=== PATIENT | female | born 1930 | race Caucasian/White ===

== ENCOUNTER 2020-05-13 10:09 | Inpatient (IN) | payer MEDICARE ==
[2020-05-13 11:07] LABS: #Eosinphils 0.1 thou/uL (0.0-0.7); #Lymphocytes 0.8 thou/uL (1.20-3.40); #Monocytes 0.7 thou/uL (0.11-0.59); %Eosinophils 0.9 % (0.0-10.0); %Lymphocytes 10.3 % (21.0-51.0); %Monocytes 9.2 % (0.0-10.0); %Neutrophils 79.6 % (42.0-75.0); Hemoglobin 12.1 g/dL (12.0-16.0); Mean Corpuscular HGB CONC 33.5 g/dL (32.0-36.0); Mean Corpuscular Hemoglobin 31.6 pg (27.0-31.0); Mean Corpuscular Volume 94.1 fL (78.0-98.0); Mean Platelet Volume 7.6 fL (7.4-10.4); Platelet Count 206 thou/uL (130-400); RBC Distribution Width 11.8 % (11.5-14.5); Red Blood Cell (RBC) Count 3.82 mill/uL (4.20-5.40); White Blood Cell (WBC) Count 7.6 thou/uL (4.8-10.8)
[2020-05-13 11:13] LABS: PTT 28.6 sec (22.9-36.1)
[2020-05-13 11:13] LABS: Bacteria/HPF None Seen HPF (None Seen); Bilirubin Negative (Negative); Blood, Urine Negative (Negative); Clarity Clear (Clear); Glucose, Urine (Dipstick) Normal (Negative); Ketone, Urine Negative (Negative); Leukocyte Negative Leu/uL (Negative); Nitrite Negative (Negative); Protein, Urine (Dipstick) 30 mg/dL (Neg-Trace); RBC/HPF 0-3 HPF (0-3); Specific Gravity, Urine 1.023 (1.002-1.036); Squamous Epithelial 0-3 HPF (0-3); WBC/HPF 0-3 HPF (0-3)
[2020-05-13 11:14] LABS: Prothrombin Time 13.3 sec (12.0-14.7)
[2020-05-13 11:26] LABS: ALT (SGPT) 9 U/L (8-55); AST (SGOT) 13 U/L (5-34); Albumin 3.8 g/dL (3.4-4.8); Alkaline Phosphatase 74 U/L (40-110); Anion Gap 15 mmol/L (10-20); BUN (Urea Nitrogen) 14 mg/dL (9.8-20.1); Bilirubin, Total 0.6 mg/dL (0.2-1.2); Calc. Creatinine Clearance 0 mL/min (70-130); Calcium 9.1 mg/dL (7.8-10.44); Carbon Dioxide 23 mmol/L (23-31); Chloride 103 mmol/L (98-107); Globulin 3.4 g/dL (2.4-3.5); Glucose 113 mg/dL (83-110); Potassium 3.9 mmol/L (3.5-5.1); Protein, Total 7.2 g/dL (5.8-8.1); Sodium 137 mmol/L (136-145)
[2020-05-13] MEDS ORDERED: Cefepime 2 GM VIAL ONE (11:50)
[2020-05-13] MEDS ORDERED: Vancomycin 1 GM/200 ML BAG ONE (12:30)
[2020-05-13] MEDS ORDERED: Acetaminophen 650 MG Suppository PR PRN (13:34)
[2020-05-13] MEDS ORDERED: Clindamycin/D5W 900 mg/50 ml Premix Bag ONE (13:49)
[2020-05-13] MEDS ORDERED: Pharmacy to Dose : VANC/ABX'S IVPB PRN (13:50)
[2020-05-13 14:01] LABS: SARS-CoV-2 NAA Rapid Test Not Detected (NotDetected)
[2020-05-13 17:31] VITALS: BMI 21.7
[2020-05-13] MEDS ORDERED: Fentanyl 100 MCG/2 ML VIAL ONE (17:34)
[2020-05-13] MEDS ORDERED: Bupivacaine PF 0.5% 30 ML VIAL ONE (17:43)
[2020-05-13] MEDS ORDERED: Thrombin 5000 UNITS/5 ML VIAL ONE (17:44)
[2020-05-13] MEDS ORDERED: Sodium Chloride 0.9% 10 ML ONE ×2 (17:44→18:54)
[2020-05-13] MEDS ORDERED: Ondansetron PF 4 MG/2 ML Vial ONE (18:09)
[2020-05-13] MEDS ORDERED: PROPOFOL 200 MG/20 ML VIAL ONE (18:09)
[2020-05-13] MEDS ORDERED: ePHEDrine 50 MG/ML VIAL ONE (18:09)
[2020-05-13] MEDS ORDERED: Dexamethasone 20 MG/5 ML VIAL ONE (18:09)
[2020-05-13] MEDS ORDERED: Lidocaine 1% PF 5 ML VIAL ONE (18:09)
[2020-05-13] MEDS: metroNIDAZOLE 500 MG in Premix Bag 1 BAG IVPB SCH (21:08)
[2020-05-13] MEDS ORDERED: HYDROcodone/Acetaminophen 7.5/325 mg Tablet PO PRN (21:52)
[2020-05-13] MEDS: Cefepime 2 GM in Sodium Chloride 0.9% 100 ML IVPB SCH (23:28)
[2020-05-14] MEDS: Vancomycin 1 GM in Premix Bag 1 BAG IVPB SCH ×2 (00:14→14:16)
[2020-05-14] MEDS: metroNIDAZOLE 500 MG in Premix Bag 1 BAG IVPB SCH ×4 (03:13→20:15)
[2020-05-14] MEDS: Morphine 2 MG/ML VIAL SLOW IVP PRN ×4 (04:11→21:18)
[2020-05-14 05:06] LABS: #Lymphocytes 0.3 thou/uL (1.20-3.40); #Monocytes 0.2 thou/uL (0.11-0.59); #Neutrophils 4.6 thou/uL (1.40-6.50); %Eosinophils 0.1 % (0.0-10.0); %Lymphocytes 6.3 % (21.0-51.0); %Monocytes 3.6 % (0.0-10.0); Hemoglobin 10.8 g/dL (12.0-16.0); Mean Corpuscular HGB CONC 34.1 g/dL (32.0-36.0); Mean Corpuscular Hemoglobin 32.5 pg (27.0-31.0); Mean Corpuscular Volume 95.5 fL (78.0-98.0); Mean Platelet Volume 7.6 fL (7.4-10.4); Platelet Count 180 thou/uL (130-400); RBC Distribution Width 11.6 % (11.5-14.5); Red Blood Cell (RBC) Count 3.31 mill/uL (4.20-5.40); White Blood Cell (WBC) Count 5.1 thou/uL (4.8-10.8)
[2020-05-14 05:28] LABS: Anion Gap 14 mmol/L (10-20); BUN (Urea Nitrogen) 14 mg/dL (9.8-20.1); Calc. Creatinine Clearance 58 mL/min (70-130); Calcium 8.5 mg/dL (7.8-10.44); Carbon Dioxide 19 mmol/L (23-31); Chloride 107 mmol/L (98-107); Glucose 139 mg/dL (83-110); Sodium 136 mmol/L (136-145)
[2020-05-14] MEDS ORDERED: FLU VACC QS2020-21(65YR UP)/PF 240 MCG/0.7 ML SYRINGE IM ONE (09:00)
[2020-05-14] MEDS: Hydrochlorothiazide 25 MG TAB PO SCH ×2 (09:45→09:49)
[2020-05-14] MEDS: Cefepime 2 GM in Sodium Chloride 0.9% 100 ML IVPB SCH ×2 (12:13→23:09)
[2020-05-14] MEDS: Atorvastatin Calcium 10 MG TAB PO SCH (20:16)
[2020-05-14] MEDS ORDERED: Sterile Water 10 ML VIAL FS PRN (21:00)
[2020-05-14] MEDS ORDERED: OLANZapine 10 MG VIAL IM SCH (21:00)
[2020-05-15 00:25] LABS: Vancomycin, Trough 17.7 ug/mL
[2020-05-15] MEDS: Vancomycin 1 GM in Premix Bag 1 BAG IVPB SCH ×2 (01:16→13:35)
[2020-05-15] MEDS: Morphine 2 MG/ML VIAL SLOW IVP PRN ×3 (01:20→20:59)
[2020-05-15] MEDS: metroNIDAZOLE 500 MG in Premix Bag 1 BAG IVPB SCH ×4 (02:28→20:59)
[2020-05-15 06:30] LABS: #Eosinphils 0.1 thou/uL (0.0-0.7); #Lymphocytes 0.9 thou/uL (1.20-3.40); #Monocytes 0.6 thou/uL (0.11-0.59); %Basophils 0.2 % (0.0-1.0); %Eosinophils 0.8 % (0.0-10.0); %Lymphocytes 11.3 % (21.0-51.0); %Neutrophils 79.6 % (42.0-75.0); Hemoglobin 11.7 g/dL (12.0-16.0); Mean Corpuscular HGB CONC 35.1 g/dL (32.0-36.0); Mean Corpuscular Hemoglobin 33.5 pg (27.0-31.0); Mean Corpuscular Volume 95.3 fL (78.0-98.0); Mean Platelet Volume 7.6 fL (7.4-10.4); Platelet Count 184 thou/uL (130-400); RBC Distribution Width 11.8 % (11.5-14.5); White Blood Cell (WBC) Count 7.5 thou/uL (4.8-10.8)
[2020-05-15 06:47] LABS: Anion Gap 14 mmol/L (10-20); BUN (Urea Nitrogen) 13 mg/dL (9.8-20.1); Calc. Creatinine Clearance 58 mL/min (70-130); Calcium 8.7 mg/dL (7.8-10.44); Carbon Dioxide 20 mmol/L (23-31); Chloride 105 mmol/L (98-107); Glucose 98 mg/dL (83-110); Potassium 3.6 mmol/L (3.5-5.1); Sodium 135 mmol/L (136-145)
[2020-05-15] MEDS: Hydrochlorothiazide 25 MG TAB PO SCH (09:02)
[2020-05-15] MEDS: Cefepime 2 GM in Sodium Chloride 0.9% 100 ML IVPB SCH (12:22)
[2020-05-15] MEDS: Atorvastatin Calcium 10 MG TAB PO SCH (21:01)
[2020-05-16] MEDS: Morphine 2 MG/ML VIAL SLOW IVP PRN ×3 (02:20→16:50)
[2020-05-16] MEDS: metroNIDAZOLE 500 MG in Premix Bag 1 BAG IVPB SCH ×4 (02:20→23:14)
[2020-05-16 06:04] LABS: #Eosinphils 0.1 thou/uL (0.0-0.7); #Lymphocytes 0.7 thou/uL (1.20-3.40); #Monocytes 0.5 thou/uL (0.11-0.59); #Neutrophils 5.1 thou/uL (1.40-6.50); %Eosinophils 1.6 % (0.0-10.0); %Lymphocytes 10.5 % (21.0-51.0); %Monocytes 7.6 % (0.0-10.0); %Neutrophils 80.3 % (42.0-75.0); Mean Corpuscular HGB CONC 33.3 g/dL (32.0-36.0); Mean Corpuscular Hemoglobin 31.5 pg (27.0-31.0); Mean Corpuscular Volume 94.6 fL (78.0-98.0); Mean Platelet Volume 7.5 fL (7.4-10.4); Platelet Count 201 thou/uL (130-400); RBC Distribution Width 11.7 % (11.5-14.5); Red Blood Cell (RBC) Count 3.81 mill/uL (4.20-5.40); White Blood Cell (WBC) Count 6.4 thou/uL (4.8-10.8)
[2020-05-16 06:25] LABS: Anion Gap 13 mmol/L (10-20); BUN (Urea Nitrogen) 11 mg/dL (9.8-20.1); Calc. Creatinine Clearance 60 mL/min (70-130); Calcium 8.6 mg/dL (7.8-10.44); Carbon Dioxide 23 mmol/L (23-31); Chloride 103 mmol/L (98-107); Glucose 117 mg/dL (83-110); Potassium 3.3 mmol/L (3.5-5.1); Sodium 136 mmol/L (136-145)
[2020-05-16] MEDS: Hydrochlorothiazide 25 MG TAB PO SCH (10:15)
[2020-05-16] MEDS: Cefepime 2 GM in Sodium Chloride 0.9% 100 ML IVPB SCH ×3 (13:10→23:52)
[2020-05-16] MEDS ORDERED: Sodium Chloride 0.9% 10 ML ONE (13:50)
[2020-05-16] MEDS ORDERED: Bupivacaine PF 0.5% 30 ML VIAL ONE ×2 (13:50→13:52)
[2020-05-16] MEDS ORDERED: Bacitracin Zinc Ointment 30 gm TUBE ONE (13:50)
[2020-05-16] MEDS ORDERED: Fentanyl 100 MCG/2 ML VIAL ONE (14:10)
[2020-05-16] MEDS ORDERED: PROPOFOL 200 MG/20 ML VIAL ONE (14:17)
[2020-05-16] MEDS ORDERED: PHENYLEPHRINE-NS 100 MCG/ML 10 ML SYRINGE ONE (14:17)
[2020-05-16] MEDS ORDERED: Lidocaine 1% PF 5 ML VIAL ONE (14:17)
[2020-05-16] MEDS ORDERED: Dexamethasone 20 MG/5 ML VIAL ONE (14:17)
[2020-05-16] MEDS ORDERED: Ondansetron PF 4 MG/2 ML Vial ONE (14:17)
[2020-05-16 16:15] LABS: Fungus Stain Final report (.)
[2020-05-16 16:15] LABS: Fungus Stain Final report (.)
[2020-05-16 16:15] LABS: Fungus Stain Final report (.)
[2020-05-16] MEDS ORDERED: Vancomycin HCl 750 MG in Sodium Chloride 0.9% 250 ML 250 ML IVPB SCH (21:00)
[2020-05-16] MEDS ORDERED: Lorazepam 2 MG/ML VIAL SLOW IVP SCH (22:00)
[2020-05-16] MEDS: Atorvastatin Calcium 10 MG TAB PO SCH (22:03)
[2020-05-17] MEDS: Vancomycin HCl 750 MG in Sodium Chloride 0.9% 250 ML 250 ML IVPB SCH ×2 (01:42→13:11)
[2020-05-17] MEDS: Morphine 2 MG/ML VIAL SLOW IVP PRN ×2 (02:24→08:36)
[2020-05-17] MEDS: metroNIDAZOLE 500 MG in Premix Bag 1 BAG IVPB SCH ×2 (02:58→08:37)
[2020-05-17 04:39] LABS: Anion Gap 14 mmol/L (10-20); BUN (Urea Nitrogen) 13 mg/dL (9.8-20.1); Calc. Creatinine Clearance 61 mL/min (70-130); Calcium 8.3 mg/dL (7.8-10.44); Carbon Dioxide 22 mmol/L (23-31); Chloride 107 mmol/L (98-107); Glucose 110 mg/dL (83-110); Potassium 3.5 mmol/L (3.5-5.1); Sodium 139 mmol/L (136-145)
[2020-05-17 06:19] LABS: #Eosinphils 0.1 thou/uL (0.0-0.7); #Lymphocytes 0.7 thou/uL (1.20-3.40); #Monocytes 0.5 thou/uL (0.11-0.59); #Neutrophils 5.5 thou/uL (1.40-6.50); %Basophils 0.1 % (0.0-1.0); %Lymphocytes 10.7 % (21.0-51.0); %Monocytes 7.8 % (0.0-10.0); %Neutrophils 80.4 % (42.0-75.0); Mean Corpuscular HGB CONC 32.2 g/dL (32.0-36.0); Mean Corpuscular Hemoglobin 30.2 pg (27.0-31.0); Mean Corpuscular Volume 93.7 fL (78.0-98.0); Mean Platelet Volume 7.5 fL (7.4-10.4); Platelet Count 213 thou/uL (130-400); RBC Distribution Width 11.4 % (11.5-14.5); Red Blood Cell (RBC) Count 3.64 mill/uL (4.20-5.40); White Blood Cell (WBC) Count 6.9 thou/uL (4.8-10.8)
[2020-05-17] MEDS: Hydrochlorothiazide 25 MG TAB PO SCH (11:21)
[2020-05-17] MEDS: Cefepime 2 GM in Sodium Chloride 0.9% 100 ML IVPB SCH (11:29)
[2020-05-17] MEDS: metroNIDAZOLE 500 MG TAB PO SCH ×2 (17:42→20:39)
[2020-05-17] MEDS: HYDROcodone/Acetaminophen 7.5/325 mg Tablet PO PRN ×2 (17:45→22:58)
[2020-05-17] MEDS: risperiDONE 1 MG TAB PO SCH (20:39)
[2020-05-17] MEDS: Ciprofloxacin 500 MG TAB PO SCH (20:39)
[2020-05-17] MEDS: Atorvastatin Calcium 10 MG TAB PO SCH (20:40)
[2020-05-17] MEDS: Acetaminophen 325 MG TAB PO PRN (20:41)
[2020-05-18] MEDS: Ciprofloxacin 500 MG TAB PO SCH ×2 (05:38→20:56)
[2020-05-18] MEDS: Hydrochlorothiazide 25 MG TAB PO SCH (09:53)
[2020-05-18] MEDS: metroNIDAZOLE 500 MG TAB PO SCH (09:53)
[2020-05-18] MEDS ORDERED: Bisacodyl 10 MG SUPP PR PRN (13:44)
[2020-05-18] MEDS: Atorvastatin Calcium 10 MG TAB PO SCH (20:56)
[2020-05-18] MEDS: HYDROcodone/Acetaminophen 7.5/325 mg Tablet PO PRN (20:56)
[2020-05-18] MEDS: Amoxicillin/Potassium Clav 875 MG TAB PO SCH (20:56)
[2020-05-18] MEDS: risperiDONE 1 MG TAB PO SCH (20:56)
[2020-05-19] MEDS: Ciprofloxacin 500 MG TAB PO SCH ×2 (06:17→20:10)
[2020-05-19] MEDS: Amoxicillin/Potassium Clav 875 MG TAB PO SCH ×2 (10:39→20:10)
[2020-05-19] MEDS: Hydrochlorothiazide 25 MG TAB PO SCH (10:39)
[2020-05-19] MEDS: risperiDONE 1 MG TAB PO SCH (20:10)
[2020-05-19] MEDS: Atorvastatin Calcium 10 MG TAB PO SCH (20:10)
[2020-05-20] MEDS: Ciprofloxacin 500 MG TAB PO SCH ×2 (06:00→22:38)
[2020-05-20] MEDS: Hydrochlorothiazide 25 MG TAB PO SCH (11:07)
[2020-05-20] MEDS: Amoxicillin/Potassium Clav 875 MG TAB PO SCH ×2 (11:07→22:25)
[2020-05-20 14:48] LABS: Anion Gap 13 mmol/L (10-20); BUN (Urea Nitrogen) 19 mg/dL (9.8-20.1); Calc. Creatinine Clearance 62 mL/min (70-130); Calcium 8.7 mg/dL (7.8-10.44); Carbon Dioxide 25 mmol/L (23-31); Chloride 104 mmol/L (98-107); Glucose 128 mg/dL (83-110); Sodium 139 mmol/L (136-145)
[2020-05-20] MEDS: Acetaminophen 325 MG TAB PO PRN (19:25)
[2020-05-20 20:26] LABS: #Lymphocytes 0.4 thou/uL (1.20-3.40); #Neutrophils 12.1 thou/uL (1.40-6.50); %Eosinophils 0.2 % (0.0-10.0); %Monocytes 7.2 % (0.0-10.0); %Neutrophils 89.6 % (42.0-75.0); Hemoglobin 12.7 g/dL (12.0-16.0); Mean Corpuscular HGB CONC 33.7 g/dL (32.0-36.0); Mean Corpuscular Hemoglobin 31.4 pg (27.0-31.0); Mean Corpuscular Volume 93.2 fL (78.0-98.0); Mean Platelet Volume 8.4 fL (7.4-10.4); Platelet Count 149 thou/uL (130-400); RBC Distribution Width 11.9 % (11.5-14.5); Red Blood Cell (RBC) Count 4.03 mill/uL (4.20-5.40); White Blood Cell (WBC) Count 13.6 thou/uL (4.8-10.8)
[2020-05-20 20:41] LABS: Lactic Acid 2.7 mmol/L (0.5-2.2)
[2020-05-20 20:46] LABS: Anion Gap 18 mmol/L (10-20); BUN (Urea Nitrogen) 19 mg/dL (9.8-20.1); Calc. Creatinine Clearance 58 mL/min (70-130); Calcium 8.6 mg/dL (7.8-10.44); Carbon Dioxide 21 mmol/L (23-31); Chloride 101 mmol/L (98-107); Glucose 188 mg/dL (83-110); Magnesium 1.9 mg/dL (1.6-2.6); Sodium 137 mmol/L (136-145)
[2020-05-20 20:53] LABS: Potassium 2.9 mmol/L (3.5-5.1)
[2020-05-20] MEDS ORDERED: Magnesium Sulfate 2 GM in Sodium Chloride 0.9% 100 ML IVPB SCH (21:00)
[2020-05-20] MEDS ORDERED: Electrolyte Replacement Protocol 1 EACH FS SCH (21:00)
[2020-05-20 21:05] LABS: Actual Bicarbonate (HCO3a) 22.1 mEq/L (22-28); Base Excess (BEa) 0.7 mEq/L (-2.0 to +3.0); CO2 Tension 26.2 mmHg (35.0-45.0); Carboxyhemoglobin (COHb) 0.2 gm% (0.0-3.0); Hemoglobin (Hb) 11.5 g/dL (12.0-16.0); O2 Tension (PaO2), arterial 71.2 mmHg (> 60.0); Potassium - ABG Lab 2.68 mmol/L (3.70-5.30); pH, Arterial 7.54 (7.35-7.45)
[2020-05-20 21:09] LABS: Puncture Site RBA
[2020-05-20] MEDS ORDERED: Magnesium 2 GM/50 ML 2 GM in Premix Bag 1 BAG IVPB SCH (21:15)
[2020-05-20 21:31] LABS: Troponin I 0.081 ng/mL (< 0.028)
[2020-05-20] MEDS: Cefepime 2 GM in Sodium Chloride 0.9% 100 ML IVPB SCH (21:49)
[2020-05-20] MEDS: Potassium Chloride 20 MEQ in Premix Bag 1 BAG IVPB SCH ×2 (21:50→23:56)
[2020-05-20] MEDS: Sodium Chloride 0.9% 1,000 ML IV SCH (21:51)
[2020-05-20] MEDS: risperiDONE 1 MG TAB PO SCH (22:25)
[2020-05-20] MEDS: Atorvastatin Calcium 10 MG TAB PO SCH (22:25)
[2020-05-20] MEDS ORDERED: Vancomycin 1 GM in Premix Bag 1 BAG IVPB SCH (23:00)
[2020-05-20 23:57] LABS: Lactic Acid 1.8 mmol/L (0.5-2.2)
[2020-05-21] LABS: Anion Gap 13 mmol/L (10-20); BUN (Urea Nitrogen) 18 mg/dL (9.8-20.1); Calc. Creatinine Clearance 56 mL/min (70-130); Calcium 8.2 mg/dL (7.8-10.44); Carbon Dioxide 26 mmol/L (23-31); Chloride 100 mmol/L (98-107); Glucose 150 mg/dL (83-110); Potassium 3.2 mmol/L (3.5-5.1); Sodium 136 mmol/L (136-145)
[2020-05-21 02:41] LABS: Bilirubin Negative (Negative); Blood, Urine Trace (Negative); Clarity Clear (Clear); Glucose, Urine (Dipstick) Normal (Negative); Ketone, Urine Negative (Negative); Leukocyte 25 Leu/uL (Negative); Nitrite Negative (Negative); Protein, Urine (Dipstick) 30 mg/dL (Neg-Trace); Specific Gravity, Urine 1.027 (1.002-1.036); Squamous Epithelial 0-3 HPF (0-3); Urobilinogen Normal mg/dL (Less than 2)
[2020-05-21 02:55] LABS: Bacteria/HPF None Seen HPF (None Seen)
[2020-05-21 02:56] LABS: Urine Culture Reflex Yes Yes
[2020-05-21] MEDS: Acetaminophen 325 MG TAB PO PRN (03:15)
[2020-05-21 03:43] LABS: Anion Gap 13 mmol/L (10-20); Carbon Dioxide 24 mmol/L (23-31); Chloride 101 mmol/L (98-107); Magnesium 2.3 mg/dL (1.6-2.6); Potassium 3.3 mmol/L (3.5-5.1); Sodium 135 mmol/L (136-145)
[2020-05-21] MEDS: Potassium Chloride 20 MEQ in Premix Bag 1 BAG IVPB SCH ×2 (06:34→08:18)
[2020-05-21] MEDS: Sodium Chloride 0.9% 1,000 ML IV SCH ×3 (06:37→20:30)
[2020-05-21] MEDS: Amoxicillin/Potassium Clav 875 MG TAB PO SCH (08:18)
[2020-05-21] MEDS: Hydrochlorothiazide 25 MG TAB PO SCH (08:18)
[2020-05-21] MEDS: Cefepime 2 GM in Sodium Chloride 0.9% 100 ML IVPB SCH ×2 (09:29→23:01)
[2020-05-21] MEDS: Vancomycin HCl 750 MG in Sodium Chloride 0.9% 250 ML 250 ML IVPB SCH ×2 (10:24→23:01)
[2020-05-21] MEDS: HYDROcodone/Acetaminophen 7.5/325 mg Tablet PO PRN (17:58)
[2020-05-21] MEDS: ALPRAZolam 0.25 MG TAB PO PRN (20:31)
[2020-05-21] MEDS: Atorvastatin Calcium 10 MG TAB PO SCH (20:33)
[2020-05-21] MEDS: risperiDONE 1 MG TAB PO SCH (20:42)
[2020-05-22] MEDS: Hydrochlorothiazide 25 MG TAB PO SCH (08:25)
[2020-05-22] MEDS: Cefepime 2 GM in Sodium Chloride 0.9% 100 ML IVPB SCH ×2 (10:17→21:25)
[2020-05-22 10:26] LABS: Vancomycin, Trough 8.4 ug/mL
[2020-05-22 10:34] LABS: ALT (SGPT) 11 U/L (8-55); AST (SGOT) 15 U/L (5-34); Albumin 2.9 g/dL (3.4-4.8); Alkaline Phosphatase 50 U/L (40-110); Anion Gap 12 mmol/L (10-20); BUN (Urea Nitrogen) 8 mg/dL (9.8-20.1); Bilirubin, Total 0.4 mg/dL (0.2-1.2); Calc. Creatinine Clearance 72 mL/min (70-130); Calcium 7.8 mg/dL (7.8-10.44); Carbon Dioxide 21 mmol/L (23-31); Chloride 106 mmol/L (98-107); Globulin 2.8 g/dL (2.4-3.5); Glucose 124 mg/dL (83-110); Potassium 3.2 mmol/L (3.5-5.1); Protein, Total 5.7 g/dL (5.8-8.1); Sodium 136 mmol/L (136-145)
[2020-05-22] MEDS ORDERED: Potassium Chloride 20 MEQ TAB PO SCH (11:00)
[2020-05-22] MEDS: Vancomycin 1.5 GRAM/300 ML BAG 1.5 GM in Premix Bag 1 BAG IVPB SCH ×2 (11:38→22:10)
[2020-05-22 14:12] LABS: #Eosinphils 0.2 thou/uL (0.0-0.7); #Lymphocytes 0.5 thou/uL (1.20-3.40); #Monocytes 0.9 thou/uL (0.11-0.59); #Neutrophils 7.3 thou/uL (1.40-6.50); %Basophils 0.1 % (0.0-1.0); %Eosinophils 1.9 % (0.0-10.0); %Monocytes 10.3 % (0.0-10.0); %Neutrophils 81.7 % (42.0-75.0); Hemoglobin 11.8 g/dL (12.0-16.0); Mean Corpuscular HGB CONC 32.6 g/dL (32.0-36.0); Mean Corpuscular Hemoglobin 30.8 pg (27.0-31.0); Mean Corpuscular Volume 94.5 fL (78.0-98.0); Mean Platelet Volume 8.1 fL (7.4-10.4); Platelet Count 148 thou/uL (130-400); RBC Distribution Width 11.8 % (11.5-14.5); Red Blood Cell (RBC) Count 3.82 mill/uL (4.20-5.40); White Blood Cell (WBC) Count 8.9 thou/uL (4.8-10.8)
[2020-05-22] MEDS: Sodium Chloride 0.9% 1,000 ML IV SCH ×2 (17:22→20:27)
[2020-05-22] MEDS: Atorvastatin Calcium 10 MG TAB PO SCH (20:23)
[2020-05-22] MEDS: ALPRAZolam 0.25 MG TAB PO PRN (20:23)
[2020-05-22] MEDS: risperiDONE 1 MG TAB PO SCH (20:23)
[2020-05-23] MEDS: Cefepime 2 GM in Sodium Chloride 0.9% 100 ML IVPB SCH ×2 (09:44→22:39)
[2020-05-23] MEDS: Hydrochlorothiazide 25 MG TAB PO SCH (09:44)
[2020-05-23] MEDS: Vancomycin 1.5 GRAM/300 ML BAG 1.5 GM in Premix Bag 1 BAG IVPB SCH ×2 (10:24→23:14)
[2020-05-23] MEDS: risperiDONE 1 MG TAB PO SCH (20:49)
[2020-05-23] MEDS: Atorvastatin Calcium 10 MG TAB PO SCH (20:49)
[2020-05-24] MEDS: Cefepime 2 GM in Sodium Chloride 0.9% 100 ML IVPB SCH (09:48)
[2020-05-24] MEDS: Hydrochlorothiazide 25 MG TAB PO SCH (09:48)
[2020-05-24 10:56] LABS: Vancomycin, Trough 20.8 ug/mL
[2020-05-24] MEDS: Atorvastatin Calcium 10 MG TAB PO SCH (21:10)
[2020-05-24] MEDS: risperiDONE 1 MG TAB PO SCH (21:20)
[2020-05-24] MEDS: Amoxicillin/Potassium Clav 600 mg/5 ml Oral Suspension PO SCH (22:22)
[2020-05-24] MEDS: ALPRAZolam 0.25 MG TAB PO PRN (23:28)
[2020-05-25 08:11] VITALS: BP 131/88; TEMP 99.1
[2020-05-25] MEDS: Amoxicillin/Potassium Clav 600 mg/5 ml Oral Suspension PO SCH (09:53)
[2020-05-25] MEDS: Hydrochlorothiazide 25 MG TAB PO SCH (09:53)
[2020-06-11 09:16] LABS: Fungus Culture Final report (.)
[2020-06-12 07:15] LABS: Fungus Culture Final report (.); Fungus Culture Result 1 Candida albicans (.)
[2020-06-12 07:15] LABS: Fungus Culture Final report (.)
== END 2020-05-25 16:00 | disposition home health service (06) | DRG 256 ==
LOC: ERS 10:09 → ONC 12:40 → IMCU/EMU 05-20 21:20 → ONC 05-21 15:52
PROVIDERS: ADMIT Internal Medicine; ATTEND Internal Medicine
PROC: 0X6Q0Z1 Detachment at Right Middle Finger, High, Open Approach (ICD-10-PCS; principal; 2020-05-13)
PROC: 0PBT0ZZ Excision of Right Finger Phalanx, Open Approach (ICD-10-PCS; 2020-05-16)
DX: I96 Gangrene, not elsewhere classified (principal); F03.91 Unspecified dementia, unspecified severity, with behavioral disturbance; E44.0 Moderate protein-calorie malnutrition; I10 Essential (primary) hypertension; E78.5 Hyperlipidemia, unspecified; Z79.899 Other long term (current) drug therapy; I89.1 Lymphangitis; F41.9 Anxiety disorder, unspecified; Z79.82 Long term (current) use of aspirin; Z51.5 Encounter for palliative care; Z68.21 Body mass index [BMI] 21.0-21.9, adult; R62.7 Adult failure to thrive; I95.9 Hypotension, unspecified; R50.9 Fever, unspecified
CPT/HCPCS: 0240U; 36415; 36416; 36600; 51701; 70450; 71045; 80048; 80051; 80053; 80202; 81001; 81003; 81015; 82805; 83605; 83735; 84484; 85025; 85610; 85652; 85730; 86140; 87040; 87070; 87076; 87077; 87086; 87102; 87116; 87149; 87186; 87205; 87206; 93005; 93010; 96365; 96367; J0692; J1100; J2060; J2270; J2405; J2704; J3010; J3370; J3475; J3480; J3490; J7050; S0020

== ENCOUNTER 2020-05-25 21:37 | Inpatient (IN) | payer MEDICARE ==
[2020-05-25 22:50] LABS: #Lymphocytes 0.5 thou/uL (1.20-3.40); #Neutrophils 11.7 thou/uL (1.40-6.50); %Basophils 0.2 % (0.0-1.0); %Eosinophils 0.2 % (0.0-10.0); %Lymphocytes 3.9 % (21.0-51.0); %Monocytes 7.5 % (0.0-10.0); %Neutrophils 88.3 % (42.0-75.0); Hemoglobin 12.3 g/dL (12.0-16.0); Mean Corpuscular HGB CONC 33.4 g/dL (32.0-36.0); Mean Corpuscular Hemoglobin 30.8 pg (27.0-31.0); Mean Corpuscular Volume 92.3 fL (78.0-98.0); Mean Platelet Volume 7.7 fL (7.4-10.4); Platelet Count 224 thou/uL (130-400); RBC Distribution Width 11.9 % (11.5-14.5); Red Blood Cell (RBC) Count 3.98 mill/uL (4.20-5.40); White Blood Cell (WBC) Count 13.2 thou/uL (4.8-10.8)
[2020-05-25 23:09] LABS: ALT (SGPT) 23 U/L (8-55); AST (SGOT) 22 U/L (5-34); Albumin 3.7 g/dL (3.4-4.8); Alkaline Phosphatase 64 U/L (40-110); Anion Gap 16 mmol/L (10-20); BUN (Urea Nitrogen) 18 mg/dL (9.8-20.1); Bilirubin, Total 0.8 mg/dL (0.2-1.2); Calc. Creatinine Clearance 0 mL/min (70-130); Calcium 8.9 mg/dL (7.8-10.44); Carbon Dioxide 24 mmol/L (23-31); Chloride 101 mmol/L (98-107); Globulin 3.7 g/dL (2.4-3.5); Glucose 154 mg/dL (83-110); Potassium 3.1 mmol/L (3.5-5.1); Protein, Total 7.4 g/dL (5.8-8.1); Sodium 138 mmol/L (136-145)
[2020-05-25 23:56] LABS: Bacteria/HPF None Seen HPF (None Seen); Bilirubin Negative (Negative); Blood, Urine Negative (Negative); Clarity Turbid (Clear); Glucose, Urine (Dipstick) Normal (Negative); Ketone, Urine Trace mg/dL (Negative); Leukocyte Negative Leu/uL (Negative); Nitrite Negative (Negative); Protein, Urine (Dipstick) 50 mg/dL (Neg-Trace); RBC/HPF 0-3 HPF (0-3); Specific Gravity, Urine 1.025 (1.002-1.036); Urobilinogen Normal mg/dL (Less than 2); pH, Urine 5.5 (5.0-9.0)
[2020-05-26] MEDS: Vancomycin 1 GM in Premix Bag 1 BAG IVPB SCH (00:30)
[2020-05-26] MEDS ORDERED: Acetaminophen 650 MG Suppository ONE (01:31)
[2020-05-26] MEDS ORDERED: Cefepime 2 GM VIAL ONE (01:31)
[2020-05-26] MEDS ORDERED: Vancomycin 1 GM/200 ML BAG ONE (01:31)
[2020-05-26 02:35] LABS: Lactic Acid 0.9 mmol/L (0.5-2.2)
[2020-05-26 03:13] LABS: SARS-CoV-2 NAA Rapid Test Not Detected (NotDetected)
[2020-05-26] MEDS ORDERED: VANCOMYCIN 1.25 GM/250 ML BAG IVPB SCH (03:15)
[2020-05-26] MEDS ORDERED: Doxycycline 100 MG in Syringe 0 ML IVPB SCH (04:00)
[2020-05-26 04:23] VITALS: BMI 23.6
[2020-05-26] MEDS: Sodium Chloride 0.9% 1,000 ML IV SCH (04:29)
[2020-05-26] MEDS: Doxycycline 100 MG in Sodium Chloride 0.9% 100 ML IVPB SCH ×2 (04:49→16:03)
[2020-05-26 05:06] LABS: #Eosinphils 0.1 thou/uL (0.0-0.7); #Lymphocytes 0.7 thou/uL (1.20-3.40); #Monocytes 0.7 thou/uL (0.11-0.59); #Neutrophils 7.8 thou/uL (1.40-6.50); %Basophils 0.2 % (0.0-1.0); %Eosinophils 0.7 % (0.0-10.0); %Lymphocytes 7.1 % (21.0-51.0); %Monocytes 7.5 % (0.0-10.0); %Neutrophils 84.4 % (42.0-75.0); Mean Corpuscular Hemoglobin 31.4 pg (27.0-31.0); Mean Corpuscular Volume 92.5 fL (78.0-98.0); Mean Platelet Volume 7.9 fL (7.4-10.4); Platelet Count 161 thou/uL (130-400); RBC Distribution Width 11.8 % (11.5-14.5); Red Blood Cell (RBC) Count 3.18 mill/uL (4.20-5.40); White Blood Cell (WBC) Count 9.2 thou/uL (4.8-10.8)
[2020-05-26 05:26] LABS: Anion Gap 11 mmol/L (10-20); BUN (Urea Nitrogen) 15 mg/dL (9.8-20.1); Calc. Creatinine Clearance 66 mL/min (70-130); Calcium 7.6 mg/dL (7.8-10.44); Carbon Dioxide 20 mmol/L (23-31); Chloride 109 mmol/L (98-107); Glucose 137 mg/dL (83-110); Sodium 137 mmol/L (136-145)
[2020-05-26 05:33] LABS: Potassium 2.7 mmol/L (3.5-5.1)
[2020-05-26] MEDS ORDERED: Electrolyte Replacement Protocol 1 EACH FS PRN (06:04)
[2020-05-26] MEDS ORDERED: Potassium Bicarbonate/Cit Ac 20 MEQ TAB PO SCH ×2 (06:15→08:00)
[2020-05-26] MEDS ORDERED: FLU VACC QS2020-21(65YR UP)/PF 240 MCG/0.7 ML SYRINGE IM ONE (07:00)
[2020-05-26] MEDS ORDERED: Magnesium 2 GM/50 ML 2 GM in Premix Bag 1 BAG IVPB SCH (07:15)
[2020-05-26] MEDS: Enoxaparin Sodium 40 MG/0.4 ML SYRINGE SC SCH (09:32)
[2020-05-26] MEDS: Potassium Chloride 20 MEQ in Premix Bag 1 BAG IVPB SCH ×3 (11:35→22:30)
[2020-05-26] MEDS: Cefepime 2 GM in Sodium Chloride 0.9% 100 ML IVPB SCH (13:47)
[2020-05-26] MEDS: Acetaminophen 325 MG TAB PO PRN (17:00)
[2020-05-27] MEDS: Potassium Chloride 20 MEQ in Premix Bag 1 BAG IVPB SCH (00:30)
[2020-05-27] MEDS: Acetaminophen 325 MG TAB PO PRN ×2 (00:34→17:47)
[2020-05-27] MEDS: Cefepime 2 GM in Sodium Chloride 0.9% 100 ML IVPB SCH ×2 (03:03→14:24)
[2020-05-27] MEDS: Doxycycline 100 MG in Sodium Chloride 0.9% 100 ML IVPB SCH ×2 (04:43→16:36)
[2020-05-27 04:45] LABS: #Eosinphils 0.1 thou/uL (0.0-0.7); #Lymphocytes 0.4 thou/uL (1.20-3.40); #Monocytes 0.8 thou/uL (0.11-0.59); #Neutrophils 6.3 thou/uL (1.40-6.50); %Basophils 0.1 % (0.0-1.0); %Eosinophils 1.5 % (0.0-10.0); %Lymphocytes 5.8 % (21.0-51.0); %Monocytes 10.1 % (0.0-10.0); %Neutrophils 82.5 % (42.0-75.0); Hemoglobin 9.7 g/dL (12.0-16.0); Mean Corpuscular HGB CONC 33.1 g/dL (32.0-36.0); Mean Corpuscular Hemoglobin 30.8 pg (27.0-31.0); Mean Corpuscular Volume 93.2 fL (78.0-98.0); Mean Platelet Volume 7.8 fL (7.4-10.4); Platelet Count 156 thou/uL (130-400); RBC Distribution Width 11.8 % (11.5-14.5); Red Blood Cell (RBC) Count 3.16 mill/uL (4.20-5.40); White Blood Cell (WBC) Count 7.6 thou/uL (4.8-10.8)
[2020-05-27 05:11] LABS: Anion Gap 11 mmol/L (10-20); BUN (Urea Nitrogen) 16 mg/dL (9.8-20.1); Calc. Creatinine Clearance 67 mL/min (70-130); Calcium 7.8 mg/dL (7.8-10.44); Carbon Dioxide 20 mmol/L (23-31); Chloride 111 mmol/L (98-107); Glucose 110 mg/dL (83-110); Potassium 3.8 mmol/L (3.5-5.1); Sodium 138 mmol/L (136-145)
[2020-05-27] MEDS: Enoxaparin Sodium 40 MG/0.4 ML SYRINGE SC SCH (08:47)
[2020-05-27] MEDS: hydrALAZINE 20 MG/ML VIAL SLOW IVP PRN (08:47)
[2020-05-27] MEDS ORDERED: Potassium Chloride 20 MEQ TAB PO SCH (09:15)
[2020-05-27] MEDS: Hydrochlorothiazide 25 MG TAB PO SCH (09:51)
[2020-05-27] MEDS: Sodium Chloride 0.9% 1,000 ML IV SCH ×2 (11:11)
[2020-05-27] MEDS ORDERED: Simvastatin 20 MG TAB PO SCH (21:00)
[2020-05-27] MEDS: Vancomycin 1 GM in Premix Bag 1 BAG IVPB SCH (22:49)
[2020-05-27] MEDS: risperiDONE 1 MG TAB PO SCH (22:49)
[2020-05-27] MEDS: Atorvastatin Calcium 10 MG TAB PO SCH (22:49)
[2020-05-27 23:40] LABS: Vancomycin, Trough 6.1 ug/mL
[2020-05-28] MEDS: Cefepime 2 GM in Sodium Chloride 0.9% 100 ML IVPB SCH ×2 (01:57→13:11)
[2020-05-28] MEDS: Nystatin Powder 15 GM BOT TOP SCH ×5 (01:58→21:58)
[2020-05-28] MEDS: Doxycycline 100 MG in Sodium Chloride 0.9% 100 ML IVPB SCH ×2 (05:00→16:49)
[2020-05-28 05:18] LABS: Anion Gap 14 mmol/L (10-20); BUN (Urea Nitrogen) 15 mg/dL (9.8-20.1); Calc. Creatinine Clearance 71 mL/min (70-130); Calcium 7.8 mg/dL (7.8-10.44); Carbon Dioxide 19 mmol/L (23-31); Chloride 113 mmol/L (98-107); Glucose 117 mg/dL (83-110); Potassium 3.4 mmol/L (3.5-5.1); Sodium 143 mmol/L (136-145)
[2020-05-28] MEDS ORDERED: Potassium Chloride 20 MEQ TAB PO SCH ×2 (05:45→10:30)
[2020-05-28 06:18] LABS: #Eosinphils 0.3 thou/uL (0.0-0.7); #Lymphocytes 0.5 thou/uL (1.20-3.40); #Monocytes 0.6 thou/uL (0.11-0.59); #Neutrophils 5.4 thou/uL (1.40-6.50); %Basophils 0.3 % (0.0-1.0); %Lymphocytes 7.8 % (21.0-51.0); %Monocytes 8.8 % (0.0-10.0); %Neutrophils 79.2 % (42.0-75.0); Mean Corpuscular HGB CONC 33.1 g/dL (32.0-36.0); Mean Corpuscular Hemoglobin 30.8 pg (27.0-31.0); Mean Corpuscular Volume 93.1 fL (78.0-98.0); Mean Platelet Volume 8.1 fL (7.4-10.4); Platelet Count 192 thou/uL (130-400); RBC Distribution Width 12.1 % (11.5-14.5); Red Blood Cell (RBC) Count 3.24 mill/uL (4.20-5.40); White Blood Cell (WBC) Count 6.8 thou/uL (4.8-10.8)
[2020-05-28] MEDS: Sodium Chloride 0.9% 1,000 ML IV SCH ×3 (07:49→13:01)
[2020-05-28] MEDS: Hydrochlorothiazide 25 MG TAB PO SCH (09:18)
[2020-05-28] MEDS: Potassium Chloride 20 MEQ TAB PO SCH (09:18)
[2020-05-28] MEDS: Enoxaparin Sodium 40 MG/0.4 ML SYRINGE SC SCH (09:19)
[2020-05-28] MEDS: Acetaminophen 325 MG TAB PO PRN (21:56)
[2020-05-28] MEDS: hydrALAZINE 20 MG/ML VIAL SLOW IVP PRN (21:56)
[2020-05-28] MEDS: Atorvastatin Calcium 10 MG TAB PO SCH (21:57)
[2020-05-28] MEDS: risperiDONE 1 MG TAB PO SCH (21:57)
[2020-05-28] MEDS: Vancomycin 1 GM in Premix Bag 1 BAG IVPB SCH (23:47)
[2020-05-29] MEDS: Sodium Chloride 0.9% 1,000 ML IV SCH ×3 (01:53→21:51)
[2020-05-29] MEDS: Cefepime 2 GM in Sodium Chloride 0.9% 100 ML IVPB SCH ×2 (01:53→14:46)
[2020-05-29] MEDS: Doxycycline 100 MG in Sodium Chloride 0.9% 100 ML IVPB SCH ×2 (04:21→17:03)
[2020-05-29 05:18] LABS: Anion Gap 11 mmol/L (10-20); BUN (Urea Nitrogen) 10 mg/dL (9.8-20.1); Calc. Creatinine Clearance 74 mL/min (70-130); Calcium 7.8 mg/dL (7.8-10.44); Carbon Dioxide 21 mmol/L (23-31); Chloride 111 mmol/L (98-107); Glucose 115 mg/dL (83-110); Potassium 3.4 mmol/L (3.5-5.1); Sodium 140 mmol/L (136-145)
[2020-05-29 05:21] LABS: #Eosinphils 0.2 thou/uL (0.0-0.7); #Lymphocytes 0.5 thou/uL (1.20-3.40); #Monocytes 0.6 thou/uL (0.11-0.59); #Neutrophils 3.8 thou/uL (1.40-6.50); %Basophils 0.3 % (0.0-1.0); %Eosinophils 3.6 % (0.0-10.0); %Lymphocytes 9.7 % (21.0-51.0); %Monocytes 11.8 % (0.0-10.0); %Neutrophils 74.6 % (42.0-75.0); Hemoglobin 9.9 g/dL (12.0-16.0); Mean Corpuscular HGB CONC 33.1 g/dL (32.0-36.0); Mean Corpuscular Hemoglobin 30.7 pg (27.0-31.0); Mean Platelet Volume 7.6 fL (7.4-10.4); Platelet Count 209 thou/uL (130-400); RBC Distribution Width 12.3 % (11.5-14.5); Red Blood Cell (RBC) Count 3.21 mill/uL (4.20-5.40); White Blood Cell (WBC) Count 5.1 thou/uL (4.8-10.8)
[2020-05-29] MEDS ORDERED: Potassium Chloride 20 MEQ TAB PO SCH (09:45)
[2020-05-29] MEDS: Nystatin Powder 15 GM BOT TOP SCH ×3 (09:50→20:33)
[2020-05-29] MEDS: Enoxaparin Sodium 40 MG/0.4 ML SYRINGE SC SCH (09:52)
[2020-05-29] MEDS: Potassium Chloride 20 MEQ TAB PO SCH (09:54)
[2020-05-29] MEDS: Hydrochlorothiazide 25 MG TAB PO SCH (09:56)
[2020-05-29] MEDS: hydrALAZINE 20 MG/ML VIAL SLOW IVP PRN (12:05)
[2020-05-29] MEDS: risperiDONE 1 MG TAB PO SCH (20:32)
[2020-05-29] MEDS: Atorvastatin Calcium 10 MG TAB PO SCH (20:33)
[2020-05-29 23:28] LABS: Vancomycin, Trough 5.1 ug/mL
[2020-05-29] MEDS: Vancomycin 1 GM in Premix Bag 1 BAG IVPB SCH (23:44)
[2020-05-30] MEDS: Cefepime 2 GM in Sodium Chloride 0.9% 100 ML IVPB SCH ×2 (02:45→17:39)
[2020-05-30] MEDS: Doxycycline 100 MG in Sodium Chloride 0.9% 100 ML IVPB SCH ×2 (04:32→18:40)
[2020-05-30 05:40] LABS: #Eosinphils 0.2 thou/uL (0.0-0.7); #Lymphocytes 0.5 thou/uL (1.20-3.40); #Monocytes 0.7 thou/uL (0.11-0.59); #Neutrophils 5.1 thou/uL (1.40-6.50); %Eosinophils 2.4 % (0.0-10.0); %Monocytes 10.6 % (0.0-10.0); %Neutrophils 79.1 % (42.0-75.0); Mean Corpuscular HGB CONC 33.3 g/dL (32.0-36.0); Mean Corpuscular Hemoglobin 30.7 pg (27.0-31.0); Mean Corpuscular Volume 92.1 fL (78.0-98.0); Mean Platelet Volume 7.6 fL (7.4-10.4); Platelet Count 224 thou/uL (130-400); RBC Distribution Width 12.5 % (11.5-14.5); Red Blood Cell (RBC) Count 3.25 mill/uL (4.20-5.40); White Blood Cell (WBC) Count 6.4 thou/uL (4.8-10.8)
[2020-05-30 05:56] LABS: Anion Gap 9 mmol/L (10-20); BUN (Urea Nitrogen) 11 mg/dL (9.8-20.1); Calc. Creatinine Clearance 71 mL/min (70-130); Carbon Dioxide 24 mmol/L (23-31); Chloride 108 mmol/L (98-107); Glucose 120 mg/dL (83-110); Potassium 3.2 mmol/L (3.5-5.1); Sodium 138 mmol/L (136-145)
[2020-05-30] MEDS ORDERED: Potassium Chloride 20 MEQ TAB PO SCH (06:30)
[2020-05-30] MEDS: Potassium Chloride 20 MEQ in Premix Bag 1 BAG IVPB SCH (07:36)
[2020-05-30] MEDS: Nystatin Powder 15 GM BOT TOP SCH ×4 (09:00→20:56)
[2020-05-30] MEDS: Hydrochlorothiazide 25 MG TAB PO SCH (12:21)
[2020-05-30] MEDS: Enoxaparin Sodium 40 MG/0.4 ML SYRINGE SC SCH (12:21)
[2020-05-30] MEDS: Potassium Chloride 20 MEQ TAB PO SCH (12:21)
[2020-05-30] MEDS: Vancomycin 1 GM in Premix Bag 1 BAG IVPB SCH ×2 (14:48→23:14)
[2020-05-30] MEDS: hydrALAZINE 20 MG/ML VIAL SLOW IVP PRN (15:29)
[2020-05-30] MEDS: Sodium Chloride 0.9% 1,000 ML IV SCH (16:50)
[2020-05-30] MEDS: Atorvastatin Calcium 10 MG TAB PO SCH (20:55)
[2020-05-30] MEDS: risperiDONE 1 MG TAB PO SCH (20:55)
[2020-05-30] MEDS ORDERED: Enoxaparin Sodium 60 MG/0.6 ML SYRINGE SC SCH (22:15)
[2020-05-31] MEDS: Sodium Chloride 0.9% 1,000 ML IV SCH ×3 (01:05→17:43)
[2020-05-31] MEDS: Cefepime 2 GM in Sodium Chloride 0.9% 100 ML IVPB SCH (01:10)
[2020-05-31 04:57] LABS: #Eosinphils 0.2 thou/uL (0.0-0.7); #Lymphocytes 0.4 thou/uL (1.20-3.40); #Monocytes 0.5 thou/uL (0.11-0.59); #Neutrophils 4.6 thou/uL (1.40-6.50); %Basophils 0.5 % (0.0-1.0); %Eosinophils 4.2 % (0.0-10.0); %Lymphocytes 7.3 % (21.0-51.0); %Monocytes 9.1 % (0.0-10.0); %Neutrophils 78.8 % (42.0-75.0); Hemoglobin 9.6 g/dL (12.0-16.0); Mean Corpuscular Hemoglobin 30.4 pg (27.0-31.0); Mean Corpuscular Volume 92.2 fL (78.0-98.0); Mean Platelet Volume 7.7 fL (7.4-10.4); Platelet Count 238 thou/uL (130-400); RBC Distribution Width 12.3 % (11.5-14.5); Red Blood Cell (RBC) Count 3.15 mill/uL (4.20-5.40); White Blood Cell (WBC) Count 5.9 thou/uL (4.8-10.8)
[2020-05-31] MEDS: Doxycycline 100 MG in Sodium Chloride 0.9% 100 ML IVPB SCH (05:00)
[2020-05-31 05:15] LABS: Anion Gap 14 mmol/L (10-20); BUN (Urea Nitrogen) 10 mg/dL (9.8-20.1); Calc. Creatinine Clearance 82 mL/min (70-130); Calcium 8.1 mg/dL (7.8-10.44); Carbon Dioxide 19 mmol/L (23-31); Chloride 108 mmol/L (98-107); Glucose 114 mg/dL (83-110); Potassium 3.1 mmol/L (3.5-5.1); Sodium 138 mmol/L (136-145)
[2020-05-31] MEDS ORDERED: Potassium Chloride 20 MEQ TAB PO SCH ×2 (06:45→11:45)
[2020-05-31] MEDS: Potassium Bicarbonate/Cit Ac 20 MEQ TAB PO SCH (08:59)
[2020-05-31] MEDS: Acetaminophen 325 MG TAB PO PRN ×2 (08:59→17:49)
[2020-05-31] MEDS: Hydrochlorothiazide 25 MG TAB PO SCH (09:02)
[2020-05-31] MEDS: Nystatin Powder 15 GM BOT TOP SCH ×3 (09:03→20:16)
[2020-05-31] MEDS ORDERED: Enoxaparin Sodium 60 MG/0.6 ML SYRINGE SC SCH (10:00)
[2020-05-31 11:31] LABS: Vancomycin, Trough 14.4 ug/mL
[2020-05-31] MEDS ORDERED: Amoxicillin/Potassium Clav 500 MG TAB PO SCH (11:45)
[2020-05-31] MEDS ORDERED: Potassium Bicarbonate/Cit Ac 20 MEQ TAB PO SCH (12:15)
[2020-05-31] MEDS ORDERED: Amoxicillin/Potassium Clav 875 MG TAB PO SCH (12:45)
[2020-05-31 17:50] LABS: Potassium 4.1 mmol/L (3.5-5.1)
[2020-05-31] MEDS: Atorvastatin Calcium 10 MG TAB PO SCH (20:15)
[2020-05-31] MEDS: Amoxicillin/Potassium Clav 875 MG TAB PO SCH (20:15)
[2020-05-31] MEDS: Enoxaparin Sodium 40 MG/0.4 ML SYRINGE SC SCH (20:15)
[2020-05-31] MEDS: risperiDONE 1 MG TAB PO SCH (20:16)
[2020-06-01] MEDS: Sodium Chloride 0.9% 1,000 ML IV SCH ×2 (05:46→21:37)
[2020-06-01] MEDS: Amoxicillin/Potassium Clav 875 MG TAB PO SCH ×2 (08:45→21:10)
[2020-06-01] MEDS: Hydrochlorothiazide 25 MG TAB PO SCH (08:46)
[2020-06-01] MEDS: Potassium Bicarbonate/Cit Ac 20 MEQ TAB PO SCH (08:46)
[2020-06-01] MEDS: Nystatin Powder 15 GM BOT TOP SCH ×3 (12:34→21:17)
[2020-06-01] MEDS: risperiDONE 1 MG TAB PO SCH (21:10)
[2020-06-01] MEDS: Atorvastatin Calcium 10 MG TAB PO SCH (21:10)
[2020-06-01] MEDS: Enoxaparin Sodium 40 MG/0.4 ML SYRINGE SC SCH (21:15)
[2020-06-02 05:38] LABS: #Eosinphils 0.5 thou/uL (0.0-0.7); #Lymphocytes 0.6 thou/uL (1.20-3.40); #Monocytes 0.6 thou/uL (0.11-0.59); #Neutrophils 3.3 thou/uL (1.40-6.50); %Basophils 0.3 % (0.0-1.0); %Eosinophils 10.3 % (0.0-10.0); %Lymphocytes 12.9 % (21.0-51.0); %Monocytes 11.2 % (0.0-10.0); %Neutrophils 65.3 % (42.0-75.0); Hemoglobin 9.3 g/dL (12.0-16.0); Mean Corpuscular HGB CONC 33.6 g/dL (32.0-36.0); Mean Corpuscular Hemoglobin 31.1 pg (27.0-31.0); Mean Corpuscular Volume 92.4 fL (78.0-98.0); Mean Platelet Volume 7.8 fL (7.4-10.4); Platelet Count 256 thou/uL (130-400); RBC Distribution Width 12.5 % (11.5-14.5); Red Blood Cell (RBC) Count 2.98 mill/uL (4.20-5.40)
[2020-06-02 05:54] LABS: Anion Gap 14 mmol/L (10-20); BUN (Urea Nitrogen) 6 mg/dL (9.8-20.1); Calc. Creatinine Clearance 75 mL/min (70-130); Carbon Dioxide 22 mmol/L (23-31); Chloride 108 mmol/L (98-107); Glucose 106 mg/dL (83-110); Potassium 3.1 mmol/L (3.5-5.1); Sodium 141 mmol/L (136-145)
[2020-06-02] MEDS ORDERED: Potassium Bicarbonate/Cit Ac 20 MEQ TAB PO SCH (06:30)
[2020-06-02] MEDS: Hydrochlorothiazide 25 MG TAB PO SCH (09:03)
[2020-06-02] MEDS: Amoxicillin/Potassium Clav 875 MG TAB PO SCH (09:03)
[2020-06-02] MEDS: Nystatin Powder 15 GM BOT TOP SCH ×2 (09:03→12:44)
[2020-06-02] MEDS: Sodium Chloride 0.9% 1,000 ML IV SCH (09:04)
[2020-06-02] MEDS ORDERED: Potassium Chloride 20 MEQ TAB PO SCH (11:00)
[2020-06-02] MEDS: Potassium Bicarbonate/Cit Ac 20 MEQ TAB PO SCH (11:41)
[2020-06-02 15:39] VITALS: BP 183/79; TEMP 97.9
== END 2020-06-02 16:01 | DRG 871 ==
LOC: ERS 21:37 → 2SE 05-26 01:46 → OBSVTOIN 05-26 01:46
PROVIDERS: ADMIT Student in an Organized Health Care Education/Training Program; ATTEND Internal Medicine
DX: A41.9 Sepsis, unspecified organism (principal); J18.9 Pneumonia, unspecified organism; G93.41 Metabolic encephalopathy; J96.01 Acute respiratory failure with hypoxia; F03.91 Unspecified dementia, unspecified severity, with behavioral disturbance; E44.0 Moderate protein-calorie malnutrition; I82.811 Embolism and thrombosis of superficial veins of right lower extremity; Z51.5 Encounter for palliative care; Z20.822 Contact with and (suspected) exposure to COVID-19; E78.5 Hyperlipidemia, unspecified; E78.00 Pure hypercholesterolemia, unspecified; R62.7 Adult failure to thrive; I10 Essential (primary) hypertension; I48.91 Unspecified atrial fibrillation; Y95 Nosocomial condition; Z89.021 Acquired absence of right finger(s); Z68.23 Body mass index [BMI] 23.0-23.9, adult
CPT/HCPCS: 0240U; 36415; 51701; 71045; 80048; 80053; 80202; 81003; 81015; 83605; 83735; 85025; 87040; 87086; 93005; 94760; 96365; 96368; J0360; J0692; J1650; J3370; J3475; J3480; J3490

== ENCOUNTER 2020-07-17 15:20 | Observation (INO) | payer MEDICARE ==
[2020-07-17 16:23] LABS: Bilirubin Negative (Negative); Blood, Urine Negative (Negative); Clarity Clear (Clear); Glucose, Urine (Dipstick) Normal (Negative); Ketone, Urine Negative (Negative); Leukocyte Negative Leu/uL (Negative); Nitrite Negative (Negative); Protein, Urine (Dipstick) Negative (Neg-Trace); Specific Gravity, Urine 1.014 (1.002-1.036); Urobilinogen Normal mg/dL (Less than 2); pH, Urine 7.5 (5.0-9.0)
[2020-07-17 16:29] LABS: #Eosinphils 0.1 thou/uL (0.0-0.7); #Lymphocytes 0.6 thou/uL (1.20-3.40); #Monocytes 0.9 thou/uL (0.11-0.59); #Neutrophils 13.7 thou/uL (1.40-6.50); %Eosinophils 0.3 % (0.0-10.0); %Lymphocytes 3.7 % (21.0-51.0); %Monocytes 5.8 % (0.0-10.0); %Neutrophils 90.2 % (42.0-75.0); Hemoglobin 11.4 g/dL (12.0-16.0); Mean Corpuscular HGB CONC 32.5 g/dL (32.0-36.0); Mean Corpuscular Hemoglobin 28.9 pg (27.0-31.0); Mean Corpuscular Volume 89.1 fL (78.0-98.0); Mean Platelet Volume 6.9 fL (7.4-10.4); Platelet Count 277 thou/uL (130-400); RBC Distribution Width 14.1 % (11.5-14.5); Red Blood Cell (RBC) Count 3.96 mill/uL (4.20-5.40); White Blood Cell (WBC) Count 15.2 thou/uL (4.8-10.8)
[2020-07-17 16:51] LABS: ALT (SGPT) 15 U/L (8-55); AST (SGOT) 15 U/L (5-34); Albumin 3.6 g/dL (3.4-4.8); Alkaline Phosphatase 82 U/L (40-110); Anion Gap 18 mmol/L (10-20); BUN (Urea Nitrogen) 15 mg/dL (9.8-20.1); Bilirubin, Total 0.5 mg/dL (0.2-1.2); Calc. Creatinine Clearance 0 mL/min (70-130); Calcium 9.2 mg/dL (7.8-10.44); Carbon Dioxide 20 mmol/L (23-31); Chloride 103 mmol/L (98-107); Globulin 3.8 g/dL (2.4-3.5); Glucose 150 mg/dL (83-110); Potassium 4.7 mmol/L (3.5-5.1); Protein, Total 7.4 g/dL (5.8-8.1); Sodium 136 mmol/L (136-145)
[2020-07-17] MEDS ORDERED: Cefepime 2 GM in Sodium Chloride 0.9% 100 ML IVPB SCH (17:00)
[2020-07-17] MEDS ORDERED: VANCOMYCIN 1.25 GM/250 ML BAG 1.25 GM in Premix Bag 1 BAG IVPB SCH (17:00)
[2020-07-17] MEDS ORDERED: Cefepime 2 GM VIAL ONE (17:09)
[2020-07-17] MEDS ORDERED: Vancomycin 1 GM/200 ML BAG ONE (17:09)
[2020-07-17 17:12] LABS: CKMB 1.6 ng/mL (0-6.6)
[2020-07-17] MEDS ORDERED: Acetaminophen 325 MG TAB PO PRN (17:51)
[2020-07-17] MEDS ORDERED: Ondansetron PF 4 MG/2 ML Vial IVP PRN (17:51)
[2020-07-17] MEDS ORDERED: Vancomycin 1 GM in Premix Bag 1 BAG IVPB SCH (18:00)
[2020-07-17 18:13] LABS: SARS-CoV-2 NAA Rapid Test Not Detected (NotDetected)
[2020-07-17 20:00] LABS: Troponin I 0.165 ng/mL (< 0.028)
[2020-07-17] MEDS: Sodium Chloride 0.9% 1,000 ML IV SCH (20:49)
[2020-07-17 20:52] VITALS: BMI 22.3
[2020-07-17] MEDS ORDERED: Atorvastatin Calcium 10 MG TAB PO SCH (21:00)
[2020-07-17] MEDS ORDERED: risperiDONE 1 MG TAB PO SCH (21:00)
[2020-07-17] MEDS: Apixaban 5 MG TAB PO SCH (22:13)
[2020-07-17 22:50] LABS: Troponin I 0.145 ng/mL (< 0.028)
[2020-07-18] MEDS: Cefepime 1 GM in Sodium Chloride 0.9% 100 ML IVPB SCH ×2 (04:28→19:33)
[2020-07-18 04:57] LABS: #Eosinphils 0.1 thou/uL (0.0-0.7); #Lymphocytes 0.5 thou/uL (1.20-3.40); #Monocytes 0.6 thou/uL (0.11-0.59); #Neutrophils 7.2 thou/uL (1.40-6.50); %Basophils 0.1 % (0.0-1.0); %Eosinophils 1.4 % (0.0-10.0); %Lymphocytes 5.5 % (21.0-51.0); %Monocytes 6.6 % (0.0-10.0); %Neutrophils 86.3 % (42.0-75.0); Hemoglobin 9.7 g/dL (12.0-16.0); Mean Corpuscular Hemoglobin 28.7 pg (27.0-31.0); Mean Corpuscular Volume 89.6 fL (78.0-98.0); Mean Platelet Volume 7.2 fL (7.4-10.4); Platelet Count 230 thou/uL (130-400); RBC Distribution Width 14.2 % (11.5-14.5); Red Blood Cell (RBC) Count 3.38 mill/uL (4.20-5.40); White Blood Cell (WBC) Count 8.4 thou/uL (4.8-10.8)
[2020-07-18 05:21] LABS: Anion Gap 10 mmol/L (10-20); BUN (Urea Nitrogen) 13 mg/dL (9.8-20.1); Calc. Creatinine Clearance 58 mL/min (70-130); Calcium 8.5 mg/dL (7.8-10.44); Carbon Dioxide 21 mmol/L (23-31); Chloride 108 mmol/L (98-107); Glucose 118 mg/dL (83-110); Potassium 3.9 mmol/L (3.5-5.1); Sodium 135 mmol/L (136-145)
[2020-07-18] MEDS ORDERED: Vancomycin HCl 750 MG in Sodium Chloride 0.9% 250 ML 250 ML IVPB SCH (06:00)
[2020-07-18] MEDS ORDERED: Hydrochlorothiazide 25 MG TAB PO SCH (09:00)
[2020-07-18] MEDS: Apixaban 5 MG TAB PO SCH (09:22)
[2020-07-18 15:48] VITALS: TEMP 98.2
[2020-07-18 22:30] VITALS: BP 103/60
== END 2020-07-18 17:30 | disposition home or self-care (01) ==
LOC: ERS 15:20 → INTOOBSV 17:51 → 2NO 17:51
PROVIDERS: ADMIT Internal Medicine; ATTEND Internal Medicine
DX: I26.99 Other pulmonary embolism without acute cor pulmonale (principal); A41.9 Sepsis, unspecified organism; J18.9 Pneumonia, unspecified organism; E78.5 Hyperlipidemia, unspecified; I10 Essential (primary) hypertension; F03.91 Unspecified dementia, unspecified severity, with behavioral disturbance; E78.00 Pure hypercholesterolemia, unspecified; I08.2 Rheumatic disorders of both aortic and tricuspid valves; I31.3 Pericardial effusion (noninflammatory); R63.0 Anorexia; Z68.22 Body mass index [BMI] 22.0-22.9, adult; Z79.899 Other long term (current) drug therapy; Z66 Do not resuscitate; Z20.822 Contact with and (suspected) exposure to COVID-19
CPT/HCPCS: 0240U; 71045; 71275; 80048; 80053; 81003; 82553; 83605; 83880; 84484 ×2; 85025 ×2; 85379; 87040; 87086; 93005; 93306; 97139; 97530; 36415; 51701; 96365; 96366; 96368; J0692; J3370; J3490; J7050